=== PATIENT | male | born 2000 | race Caucasian/White ===

== ENCOUNTER 2024-02-01 15:05 | Emergency (ER) | payer SELFPAY ==
[2024-02-01 15:15] VITALS: BP 118/64; PULSE 56; RESP 19; TEMP 97.9; BMI 26.6
[2024-02-01] MEDS ORDERED: ACETAMINOPHEN 325 MG TABLET (FP) ONE (16:08)
[2024-02-01] MEDS ORDERED: IBUPROFEN 400 MG TABLET (FP) PO ONE (16:08)
[2024-02-01] MEDS ORDERED: DIPHTH,PERTUSS(ACELL),TET 0.5 ML DISP.SYRIN IM ONE (16:08)
[2024-02-01] MEDS: DIPHTH,PERTUSS(ACELL),TET 0.5 ML DISP.SYRIN IM ONE (16:16)
[2024-02-01] MEDS: IBUPROFEN 400 MG TABLET (FP) PO ONE (16:16)
[2024-02-01] MEDS: ACETAMINOPHEN 500 MG TABLET (FP) PO ONE (16:18)
[2024-02-01] MEDS ORDERED: BACITRACIN ZINC 15 GM TUBE TOPICAL OINTMENT ONE (16:40)
[2024-02-01] MEDS: BACITRACIN ZINC 15 GM TUBE TOPICAL OINTMENT TP ONE (16:42)
== END 2024-02-01 17:00 | disposition home or self-care (01) ==
LOC: JERFT 15:05
PROC: 0XQKXZZ Repair Left Hand, External Approach (ICD-10-PCS; principal; 2024-02-01)
PROC: 3E0234Z Introduction of Serum, Toxoid and Vaccine into Muscle, Percutaneous Approach (ICD-10-PCS; 2024-02-01)
DX: S51.812A Laceration without foreign body of left forearm, initial encounter (principal); W31.2XXA Contact with powered woodworking and forming machines, initial encounter; Z23 Encounter for immunization
CPT/HCPCS: 73090-TC-LT-FY; 90715; 99284-25